=== PATIENT | male | born 1985 | race Caucasian/White ===

== ENCOUNTER 2022-03-02 10:23 | Emergency (ER) | payer SELFPAY ==
[~2022-03-02] VITALS: Ht 177.8 cm; Wt 81.0 kg
[2022-03-02] MEDS ORDERED: LORAZEPAM 1MG TABLET PO ONE (11:00)
[2022-03-02 11:13] LABS: *AMPHETAMINES SCREEN URINE NEGATIVE (NEGATIVE); *BARBITURATES SCREEN URINE NEGATIVE (NEGATIVE); *BENZODIAZEPINES SCREEN URINE NEGATIVE (NEGATIVE); *COCAINE SCREEN URINE NEGATIVE (NEGATIVE); CANNABINOID URINE SCREEN PRESUMTIVE POSITIVE (NEGATIVE); METHADONE URINE SCREEN NEGATIVE (NEGATIVE); OPIATES URINE SCREEN NEGATIVE (NEGATIVE); PHENCYCLIDINE URINE SCREEN NEGATIVE (NEGATIVE)
[2022-03-02 11:42] VITALS: BP 116/68
== END 2022-03-02 12:15 | disposition home or self-care (01) ==
LOC: ER 10:58
DX: F41.9 Anxiety disorder, unspecified (principal); Y08.89XA Assault by other specified means, initial encounter; Y93.89 Activity, other specified; Y92.89 Other specified places as the place of occurrence of the external cause; Y99.8 Other external cause status; I10 Essential (primary) hypertension
CPT/HCPCS: 80305; 93005; 99284